=== PATIENT | male | born 1965 | race Caucasian/White ===

== ENCOUNTER 2024-12-04 13:45 | Outpatient (CLI) | payer MEDICAID, SELFPAY | END 2024-12-04 13:46 | disposition home or self-care (01) | LOC: NFLDREF 12-08 03:34 | PROVIDERS: Visit Provider Nurse Practitioner Family | DX: I10 Essential (primary) hypertension (principal); E78.1 Pure hyperglyceridemia; E66.9 Obesity, unspecified; R73.03 Prediabetes; F10.10 Alcohol abuse, uncomplicated; Z13.1 Encounter for screening for diabetes mellitus; Z12.5 Encounter for screening for malignant neoplasm of prostate; Z13.6 Encounter for screening for cardiovascular disorders | CPT/HCPCS: 80053; 80061; 82043; 82570; G0103 ==